=== PATIENT | male | born 1990 | race Caucasian/White ===

== ENCOUNTER 2020-11-07 18:45 | Emergency (ER) | payer BC, MEDICAID ==
--- NOTE | 2020-11-07 19:45 | ER Document Report ---
ED Medical Screen (RME) - General Chief Complaint: Abdominal Pain Stated Complaint: ABDOMINAL PAIN,SWELLING Time Seen by Provider: 11/07/20 19:37 Primary Care Provider: MICHAEL CANAS NP [Primary Care Provider] - Follow up as needed - [facility] Notes: Patient is a 30-year-old male with no medical history who presents with right- sided abdominal pain that began 2 weeks ago. Patient states he has been seen in the emergency department 5 times at various locations over the past 2 weeks and has had 2 CT scans. Patient states his most recent visit was 2 days in [place]. Patient states he was diagnosed with constipation given an enema and prescribe Dulcolax. He states he is now having regular bowel movements but continues to have the same pain. He also reports shortness of breath now that is worse with l yobany down. Patient reports nausea and subjective fevers but denies vomiting and diarrhea. - Related Data Allergies/Adverse Reactions: clindamycin [Clindamycin] Allergy (Verified 12/20/12 19:30) Sulfa (Sulfonamide Antibiotics) Allergy (Verified 11/07/20 19:40) Home Medications: SUBOXONE Past Medical History Neurological Medical History: Reports: Hx Migraine Psychiatric Medical History: Reports: Hx Anxiety Past Surgical History: Reports: Hx Oral Surgery - 6 teeth pulled - Immunizations Immunizations up to date: Yes Hx Diphtheria, Pertussis, Tetanus Vaccination: Yes Physical Exam - Vital signs Vitals: Temp Pulse Resp BP Pulse Ox 98.1 F 84 16 131/52 H 100 11/07/20 18:53 11/07/20 18:53 11/07/20 18:53 11/07/20 18:53 11/07/20 18:53 - Respiratory Respiratory status: No respiratory distress Breath sounds: Normal - Abdominal Bowel sounds: Normal Tenderness: Nontender Course - Re-evaluation Re-evalutation: I have greeted and performed a rapid initial assessment of this patient. A comprehensive ED assessment and evaluation of the patient, analysis of test results and completion of medical decision making process will be conducted by an additional ED providers. - Vital Signs Vital signs: Temp Pulse Resp BP Pulse Ox 98.1 F 84 16 131/52 H 100 11/07/20 18:53 11/07/20 18:53 11/07/20 18:53 11/07/20 18:53 11/07/20 18:53 Doctor's Discharge - Discharge Referrals: MICHAEL CANAS, [employer] [Primary Care Provider] - Follow up as needed
[2020-11-07 20:37] LABS: ABSOLUTE BASOPHILS # (AUTO) 0.1 10^3/uL (0.0-0.2); ABSOLUTE EOSINOPHILS # (AUTO) 0.5 10^3/uL (0.0-0.6); ABSOLUTE LYMPHOCYTES (AUTO) 2.3 10^3/uL (0.5-4.7); ABSOLUTE MONOCYTES (AUTO) 0.6 10^3/uL (0.1-1.4); ABSOLUTE NEUT (AUTO) 5.4 10^3/uL (1.7-8.2); EOSINOPHILS % (AUTO) 5.7 % (0-6); HEMATOCRIT 42.2 % (37.9-51.0); HEMOGLOBIN 14.1 g/dL (13.5-17.0); LYMPHOCYTES % (AUTO) 26.3 % (13-45); MEAN CORPUSCULAR HEMOGLOBIN 29.6 pg (27.0-33.4); MEAN CORPUSCULAR HGB CONC 33.4 g/dL (32.0-36.0); MEAN CORPUSCULAR VOLUME 89 fl (80-97); MONOCYTES % (AUTO) 6.2 % (3-13); PLATELET COUNT 266 10^3/uL (150-450); RED BLOOD COUNT 4.75 10^6/uL (4.35-5.55); RED CELL DISTRIBUTION WIDTH 13.6 % (11.5-14.0); SEGMENTED NEUTROPHILS % (AUTO) 60.8 % (42-78); TOTAL CELLS COUNTED % (AUTO) 100 %; WHITE BLOOD COUNT 8.9 10^3/uL (4.0-10.5)
[2020-11-07 20:38] LABS: APPEARANCE,URINE SLIGHTLY-CLOUDY; BILIRUBIN,URINE NEGATIVE (NEGATIVE); COLOR,URINE YELLOW; GLUCOSE, URINE NEGATIVE (NEGATIVE); KETONES,URINE NEGATIVE (NEGATIVE); LEUKOCYTE ESTERASE,URINE NEGATIVE (NEGATIVE); NITRITE,URINE NEGATIVE (NEGATIVE); PROTEIN,URINE NEGATIVE (NEGATIVE); URINE SPECIFIC GRAVITY 1.025; UROBILINOGEN,URINE NEGATIVE mg/dL (<2.0)
--- NOTE | 2020-11-07 20:38 | RADIOLOGY REPORT (SQ) ---
CLINICAL INDICATION: shortness of breath. TECHNIQUE: A single portable AP view was obtained of the chest at 2009 hours. COMPARISON: None available. FINDINGS: The cardiomediastinal silhouette is normal. The lungs are grossly clear. No evidence of effusion or pneumothorax. The visualized bones are unremarkable. IMPRESSION: No evidence of active intrathoracic disease.
[2020-11-07 20:52] LABS: ALBUMIN 4.7 g/dL (3.5-5.0); ALKALINE PHOSPHATASE 50 U/L (38-126); ANION GAP 7 (5-19); ASPARTATE AMINO TRANSFERASE 32 U/L (17-59); BILIRUBIN,DIRECT 0.2 mg/dL (0.0-0.4); BILIRUBIN,TOTAL 0.3 mg/dL (0.2-1.3); BLOOD UREA NITROGEN 14 mg/dL (7-20); CALCIUM 9.9 mg/dL (8.4-10.2); CARBON DIOXIDE 30 mmol/L (22-30); CHLORIDE 101 mmol/L (98-107); GLUCOSE 114 mg/dL (75-110); POTASSIUM 4.6 mmol/L (3.6-5.0); TOTAL PROTEIN 8.2 g/dL (6.3-8.2)
--- NOTE | 2020-11-07 21:18 | ER Document Report ---
ED GI/ - General Chief Complaint: Abdominal Pain Stated Complaint: ABDOMINAL PAIN,SWELLING Time Seen by Provider: 11/07/20 19:37 Primary Care Provider: MICHAEL CANAS NP [NO LOCAL MD] - Follow up as needed JUDD SHORE MD [ACTIVE STAFF] - Follow up in 3-5 days (Call next week for an outpatient follow-up appointment.) Mode of Arrival: Ambulatory Information source: Patient Notes: 30-year-old male presents to the emergency room complaining of persistent right- sided and right lower abdominal pain for the past 2 weeks. Patient describes it as a dull sensation and feels like "there is leaking in my stomach". Patient states he been seen 5 different times at 5 other emergency room's most recently 2 days ago diagnosed with constipation states he is now having normal bowel movements. States he has had 2 CAT scans that were normal outside of the constipation. Is taking Suboxone as needed for pain which he states helps. Denies any nausea, vomiting, no COVID-19 exposure. Patient states he has an appointment this week with his primary care physician. TRAVEL OUTSIDE OF THE [place] IN LAST 30 DAYS: No - Related Data Allergies/Adverse Reactions: clindamycin [Clindamycin] Allergy (Verified 12/20/12 19:30) Sulfa (Sulfonamide Antibiotics) Allergy (Verified 11/07/20 19:40) Home Medications: SUBOXONE Past Medical History - General Information source: Patient - Social History Smoking Status: Current Every Day Smoker Frequency of alcohol use: None Drug Abuse: None Family History: None Neurological Medical History: Reports: Hx Migraine Psychiatric Medical History: Reports: Hx Anxiety Past Surgical History: Reports: Hx Oral Surgery - 6 teeth pulled - Immunizations Immunizations up to date: Yes Hx Diphtheria, Pertussis, Tetanus Vaccination: Yes Review of Systems - Review of Systems -: Yes ROS unobtainable due to patient's medical condition Constitutional: No symptoms reported EENT: No symptoms reported Cardiovascular: No symptoms reported Respiratory: No symptoms reported Gastrointestinal: Abdominal pain, Constipation. denies: Diarrhea, Nausea, Vomiting Genitourinary: No symptoms reported Musculoskeletal: No symptoms reported Skin: No symptoms reported Neurological/Psychological: No symptoms reported -: Yes All other systems reviewed and negative Physical Exam - Vital signs Vitals: Temp Pulse Resp BP Pulse Ox 98.1 F 84 16 131/52 H 100 11/07/20 18:53 11/07/20 18:53 11/07/20 18:53 11/07/20 18:53 11/07/20 18:53 - Notes Notes: GENERAL: No distress, non-toxic appearance. HEAD: Normal with no signs of head trauma. EYES: PERRLA, EOMI, conjunctiva normal, no discharge. EARS: Hearing grossly intact. NOSE: Normal. THROAT: Oropharynx is normal. NECK: Normal range of motion, no tenderness, supple, no lymphadenopathy, No adenopathy, no JVD. CHEST: Clear breath sounds bilaterally. No wheezes, rales, or rhonchi. CARDIAC: Regular rate and rhythm. S1 and S2, without murmurs, gallops, or rubs. VASCULAR: No Edema. Peripheral pulses normal and equal in all extremities. ABDOMEN: Normal and soft with no tenderness, no masses or pulsatile masses. No organomegaly. Positive bowel sounds x4. No CVA tenderness noted bilaterally. GASTROINTESTINAL: Bowel sounds normal LYMPATHTIC: No lymphadenopathy noted. MUSCULOSKELETAL: Good range of motion of all major joints. Extremities without clubbing, cyanosis or edema. NEUROLOGICAL: Alert and oriented x 3. No focal sensory or strength deficits. Speech normal. Follows commands appropriately. PSYCHIATRIC: Normal Affect, judgement and mood. SKIN: Normal appearance with no rashes or lesions. Course - Re-evaluation Re-evalutation: 11/07/20 21:15 Patient is currently resting comfortably he is pain-free on exam. He denies any pain. Discussed all lab and x-ray findings with patient. Was counseled importance of outpatient follow-up with his primary care physician recommend outpatient follow-up with gastroenterology. Continue with his Suboxone as needed for pain. Patient was given strict return to the emergency room guidelines. Return for any new or worsening symptoms. All questions were answered. Patient verbalized understanding and agrees with plan of care. - Vital Signs Vital signs: Temp Pulse Resp BP Pulse Ox 98.3 F 84 18 151/60 H 100 11/07/20 21:43 11/07/20 21:43 11/07/20 21:43 11/07/20 21:43 11/07/20 21:43 - Laboratory Results Result Diagrams: 11/07/20 20:25 11/07/20 20:25 Laboratory Results Interpreted: 11/07/20 20:25 Glucose 114 H Critical Laboratory Results Reviewed: No Critical Results - Radiology Results Critical Radiology Results Reviewed: No Critical Results Discharge - Discharge Clinical Impression: Abdominal pain of unknown etiology Condition: Stable Disposition: HOME, SELF-CARE Instructions: Abdominal Pain ([facility]) Additional Instructions: You have been seen in the Emergency Department (ED) for abdominal pain. Your evaluation did not identify a clear cause of your symptoms but was generally reassuring. Outpatient follow-up with gastroenterology as discussed. Please follow up with your doctor as soon as possible regarding today's emergent visit and the symptoms that are bothering you. Return to the ED if your abdominal pain worsens or fails to improve, you develop bloody vomiting, bloody diarrhea, you are unable to tolerate fluids due to vomiting, fever greater than 101, or other symptoms that concern you. Referrals: MICHAEL CANAS NP [NO LOCAL MD] - Follow up as needed JUDD SHORE MD [ACTIVE STAFF] - Follow up in 3-5 days (Call next week for an outpatient follow-up appointment.)
[2020-11-07 21:43] VITALS: BP 151/60
== END 2020-11-07 21:44 | disposition home or self-care (01) ==
LOC: ER 18:45
DX: R10.30 Lower abdominal pain, unspecified (principal); R06.02 Shortness of breath; F17.200 Nicotine dependence, unspecified, uncomplicated; Z88.3 Allergy status to other anti-infective agents
CPT/HCPCS: 36415; 71045; 80053; 81001; 83690; 85025; 99284